=== PATIENT | male | born 1955 | race Two or more races ===

== ENCOUNTER 2018-04-26 05:16 | Inpatient (IN) | payer OTHER ==
[~2018-04-26] VITALS: Ht 170.2 cm; Wt 88.5 kg
[2018-04-26] MEDS ORDERED: CELECOXIB 100 MG CAPSULE ONE (05:44)
[2018-04-26] MEDS ORDERED: CEFAZOLIN SODIUM/DEXTROSE,ISO 50 ML IV ONE (05:44)
[2018-04-26] MEDS ORDERED: ACETAMINOPHEN 325 MG TABLET ONE (05:44)
[2018-04-26] MEDS ORDERED: oxyCODONE HCL SR 10MG TAB.SR.12H PO ONE (05:45)
[2018-04-26] MEDS ORDERED: ANESTHESIA TRAY IN PYXIS 1 EA TRAY MC ONE (06:26)
[2018-04-26] MEDS ORDERED: BACITRACIN 50000 UNITS/VIAL ONE (06:41)
[2018-04-26] MEDS ORDERED: BUPIVACAINE MPF 0.75% 30 ML VIAL ONE (07:15)
[2018-04-26 10:00] VITALS: BP 125/74
--- NOTE | 2018-04-26 10:00 | NUR ---
MS DRYERMAN/WOMAN NOTES RECEIVED PT FROM OR STAFF IN STABLE CONDITION. PT IS A/O X4. NO SOB OR ACUTE SIGNS OF DISTRESS NOTED. BREATHING IS EVEN AND UNLABORED. PT ON RA AND SATING AT 96%. VITALS STABLE AT THIS TIME. IV TO LEFT WRIST NOTED TO BE PATENT AND INTACT. NO REDNESS OR SIGNS OF INFILTRATION NOTED. SURGICAL DRESSINGS NOTED TO BE CLEAN, DRY, AND INTACT. ORDERS NOTED BY DR. FELDMAN. MEDICATION ORDERS FAXED TO PHARMACY. PT DENIES ANY PAIN AT THIS TIME. SULFONATOR OPERATOR EPIC MADE AWARE OF PT'S ARRIVAL. INCENTIVE SPIROMETER PROVIDED FOR LUNG REEXPANSION AND PNA PREVENTION. PT ORIENTED TO ROOM AND USE OF CALL LIGHT. BED IN LOW LOCKED POSITION. SIDE RAILS UP X2, CALL LIGHT WITHIN REACH. WILL CONTINUE TO MONITOR
[2018-04-26 10:22] VITALS: BP 137/84
[2018-04-26] MEDS ORDERED: ATOR40TA PO (10:30)
[2018-04-26] MEDS: IV LR 1000 ML 1,000 ML IV PRN ×2 (10:58→23:07)
[2018-04-26] MEDS ORDERED: MAG HYDROX/AL HYDROX/SIMETH 30 ML UDC PO PRN (11:00)
[2018-04-26] MEDS ORDERED: HYDROCODONE/APAP 5/325MG 1 EACH TABLET PO PRN ×4 (11:00→19:00)
[2018-04-26] MEDS ORDERED: ACETAMINOPHEN 325 MG TABLET PO PRN (11:00)
[2018-04-26] MEDS ORDERED: SENOKOT 8.6 MG TABLET PO PRN (11:00)
[2018-04-26] MEDS ORDERED: MORPHINE SULFATE INJ 2 MG/ML DISP.SYRIN IV PRN ×2 (11:00)
[2018-04-26] MEDS ORDERED: COLACE 250 MG CAPSULE PO PRN (11:00)
[2018-04-26] MEDS ORDERED: ZOLPIDEM TARTRATE 5 MG TABLET PO PRN (11:00)
[2018-04-26] MEDS ORDERED: MAGNESIUM HYDROXIDE 30 ML UDC PO PRN (11:00)
[2018-04-26] MEDS ORDERED: ZOFRAN 4mg/2ML IV PRN (11:00)
[2018-04-26] MEDS ORDERED: TYLENOL 650 MG TABLET PO PRN (11:00)
[2018-04-26] MEDS ORDERED: Z GUARD REMEDY 2 OZ OINT TP PRN (11:00)
[2018-04-26] MEDS ORDERED: ONDANSETRON HCL/PF 4 MG/2 ML VIAL IVP PRN (11:00)
[2018-04-26 16:00] VITALS: BP 120/70
[2018-04-26] MEDS: ANCEF 1 GM/50 ML D5W IV SCH ×4 (16:37→23:07)
--- NOTE | 2018-04-26 18:51 | NUR ---
MS RN CLOSING NOTES PT REMAINS STABLE. DRESSINGS REMAIN CLEAN DRY AND INTACT. PAIN PROPERLY MANAGED WITH PRN PRESCRIPTIONS. IV REMAINS PATENT AND INTACT. VITALS REMAIN STABLE. WILL ENDORSE TO NIGHTSHIFT NURSE FOR [place]
[2018-04-26] MEDS ORDERED: diphenhydrAMINE HCL 25 MG CAPSULE PO PRN (19:00)
[2018-04-26] MEDS ORDERED: MORPHINE SULFATE INJ 4 MG/ML DISP.SYRIN IM/IV PRN (19:00)
[2018-04-26] MEDS ORDERED: CLONIDINE HCL 0.1 MG TABLET PO PRN (19:00)
[2018-04-26] MEDS ORDERED: HYDROCODONE/APAP 10/325MG 1 EA TABLET PO PRN (19:00)
[2018-04-26] MEDS ORDERED: MORPHINE SULFATE INJ 4 MG/ML DISP.SYRIN IM/IV ONE (19:11)
--- NOTE | 2018-04-26 19:53 | NUR ---
MS RN NOTES RECEIVED PT ON BED. A/O X4/ ON ROOM AIR SATURATING WELL. IV ACCESS LEFT WRIST 18G LR RUNNING @ 100CC/HR. IV RUNNING WELL, NO SIGN OF INFILTRATION OR PAIN. HEAD OF BED ELEVATED. SIDE RAILS UP. BED ALARM ON . CALL LIGHT WITHIN REACH. WILL CONTINUE TO MONITOR PT CLOSELY.
[2018-04-26 20:00] VITALS: BP_SYST 108; BP_DIAS 62; BP_DIAS 67
[2018-04-26] MEDS ORDERED: HYDROCODONE/APAP 5/325MG 1 EACH TABLET PO ONE (20:00)
[2018-04-26] MEDS ORDERED: AMBIEN 5 MG TABLET PO PRN (22:00)
[2018-04-26] MEDS ORDERED: PANTOPRAZOLE 40 MG TABLET.DR PO SCH (22:00)
[2018-04-26] MEDS ORDERED: DULCOLAX 10 MG/SUPP.RECT RC PRN (22:00)
--- NOTE | 2018-04-27 06:27 | NUR ---
MS RN NOTES NO ACUTE CHANGES NOTED DURING THE SHIFT. NO COMPLAINTS OF PAIN THROUGHOUT THE SHIFT. PROVIDED COMFORT AND SAFETY. DUE MEDS GIVEN. HEAD OF BED ELEVATED. SIDE RAILS UP. CALL LIGHT WITHIN REACH. BED ALARM ON. WILL ENDORSE TO THE AM NURSE FOR CONTINUITY OF CARE.
[2018-04-27 07:13] LABS: BASOPHILS % (AUTO) 0.3 % (0.0-2.0); EOSINOPHILS % (AUTO) 0.7 % (0.0-6.0); HEMATOCRIT 37 % (39-51); HEMOGLOBIN 12.4 g/dL (13.5-17.5); LYMPHOCYTES # (AUTO) 3.1 /CMM (0.8-4.8); MEAN CORPUSCULAR HEMOGLOBIN 29 PG (26.0-33.0); MEAN CORPUSCULAR HGB CONC 33 g/dl (31.0-36.0); MEAN CORPUSCULAR VOLUME 88 fL (80-96); MONOCYTES # (AUTO) 0.7 /CMM (0.1-1.30); MONOCYTES % (AUTO) 6.6 % (2.0-12.0); NEUTROPHILS # (AUTO) 6.1 /CMM (1.8-8.9); NEUTROPHILS % (AUTO) 61.4 % (43.0-81.0); PLATELET COUNT (AUTO) 198 /CMM (150-450); RDW COEFFICIENT OF VARIATION 14.4 (11.5-15.0); RED BLOOD CELL COUNT(AUTO) 4.25 MIL/uL (4.5-6.0); WHITE BLOOD COUNT (AUTO) 9.9 K/uL (4.3-11.0)
[2018-04-27 07:52] LABS: CALCIUM, SERUM 8.2 mg/dL (8.5-10.1); MAGNESIUM 2.1 mg/dL (1.8-2.4); POTASSIUM 3.9 mmol/L (3.5-5.1)
[2018-04-27 08:00] VITALS: BP 106/66
--- NOTE | 2018-04-27 08:02 | NUR ---
MS RN OPENING NOTES RECEIVED PT FROM OR STAFF IN STABLE CONDITION. PT IS A/O X4. NO SOB OR ACUTE SIGNS OF DISTRESS NOTED. BREATHING IS EVEN AND UNLABORED. PT ON RA AND SATING WELL. HE DENIES ANY PAIN AT THIS TIME. SURGICAL DRESSINGS NOTED TO BE CLEAN, DRY, AND INTACT. IV TO LEFT WRIST NOTED TO BE PATENT AND INTACT. PT TOLERATING LR INFUSION WELL. BED IN LOW LOCKED POSITION. SIDE RAILS UP X2, CALL LIGHT WITHIN REACH. WILL CONTINUE TO MONITOR
[2018-04-27] MEDS ORDERED: ASPIRIN 325 MG TABLET PO SCH (09:00)
[2018-04-27] MEDS ORDERED: ATORVASTATIN 40 MG TABLET PO SCH (09:00)
[2018-04-27] MEDS ORDERED: DOCUSATE SODIUM 100 MG CAPSULE PO SCH (09:00)
[2018-04-27] MEDS ORDERED: MORPHINE SULFATE INJ 4 MG/ML DISP.SYRIN IV PRN (09:30)
[2018-04-27] MEDS ORDERED: CELE200C PO (12:04)
--- NOTE | 2018-04-27 17:09 | NUR ---
MS COMPENSATION EXPERT NOTES PT WAS DISCHARGED FROM FACILITY IN STABLE CONDITION. ALL NEEDS WERE MET DURING SHIFT AND ORDERS CARRIED OUT ACCORDINGLY. ALL DUE MEDS GIVEN. SURGICAL DRESSINGS KEPT CLEAN, DRY, AND INTACT. VITALS STABLE PRIOR TO D/C. D/C INSTRUCTIONS REVIEWED WITH PT. PT VERBALIZED UNDERSTANDING AND SIGNED ALL D/C PAPERWORK. COPIES MADE AND PLACED IN CHART. IV WAS SUCCESSFULLY REMOVED WITH CATHETER TIP INTACT. PT WAS SAFELY WHEELED TO THE FROM LOBBY AND LEFT VIA PRIVATE VEHICLE WITH ALL BELONGINGS.
== END 2018-04-27 16:50 | disposition home or self-care (01) | DRG 468 ==
LOC: DS 05:16 → MED 08:38
PROVIDERS: ADMIT Specialist; ATTEND Family Medicine
PROC: 0SPD0JZ Removal of Synthetic Substitute from Left Knee Joint, Open Approach (ICD-10-PCS; principal; 2018-04-26 08:00)
PROC: 0SRD0J9 Replacement of Left Knee Joint with Synthetic Substitute, Cemented, Open Approach (ICD-10-PCS; principal; 2018-04-26 08:00)
DX: T84.023A Instability of internal left knee prosthesis, initial encounter (principal); T84.84XA Pain due to internal orthopedic prosthetic devices, implants and grafts, initial encounter; Y92.009 Unspecified place in unspecified non-institutional (private) residence as the place of occurrence of the external cause; Y83.1 Surgical operation with implant of artificial internal device as the cause of abnormal reaction of the patient, or of later complication, without mention of misadventure at the time of the procedure; E66.9 Obesity, unspecified; E78.5 Hyperlipidemia, unspecified; Z68.30 Body mass index [BMI] 30.0-30.9, adult; X58.XXXA Exposure to other specified factors, initial encounter
CPT/HCPCS: 36415; 80048-TC; 80061-TC; 83735-TC; 84100-TC; 85025-TC; 87081-TC; 88300-TC; 97110-TC; 97116-TC; 97530-TC; J0690; J2270; J3490; J7060; J7120